=== PATIENT | female | born 1965 | race American Indian/Alaskan Native ===

== ENCOUNTER 2016-11-23 18:32 | Emergency (ER) | payer SELFPAY ==
--- NOTE | 2016-11-23 22:12 | XRay Report ---
FINAL REPORT EXAM: XR ANKLE 3 RT HISTORY: ANKLE PAIN /SWELLING S/P FALL COMPARISONS: None. FINDINGS: Three nonweightbearing views right ankle Ankle mortise appears intact. Chronic appearing osseous fragment at the distal aspect of the medial malleolus measures up to 7 millimeters. No acute fracture identified. There is soft tissue swelling about the ankle. Calcaneal heel spur. Mild tibiotalar and midfoot osteoarthrosis. IMPRESSION: Soft tissue swelling about the right ankle without acute fracture identified. Consider additional imaging for worsening/persistent symptoms.
[2016-11-23] MEDS ORDERED: NORCO 5/325 PO ONE (23:32)
[2016-11-23] MEDS ORDERED: TORADOL IM ONE (23:32)
--- NOTE | 2016-11-23 23:46 | XRay Report ---
FINAL REPORT EXAM: XR FOOT 3 RT HISTORY: Pain post fall rt foot pain COMPARISONS: Ankle radiographs of the same date FINDINGS: Soft tissue swelling is present over the forefoot on lateral view. Mild tibiotalar and midfoot osteoarthrosis. Achilles insertional enthesophytes and calcaneal heel spur noted. No bone lesion, periosteal reaction, or fracture. No deformity or gross malalignment. IMPRESSION: Soft tissue swelling predominantly over the dorsal forefoot. No visualized fracture.
--- NOTE | 2016-11-23 23:58 | Emergency Department Report ---
HPI - General Chief Complaint: Extremity Injury, Lower Time Seen by Provider: 11/23/16 23:01 - HPI HPI: 51-year-old female presents today complaining of right ankle and foot pain post fall that occurred 3 days ago. Patient states that she fell on her ankle. Denies loss of consciousness. Describes her pain as 10 out of 10 constant, throbbing pain. Tried Aleve with some relief. Denies numbness, weakness, paresthesias. Denies fever, chills, nausea, vomiting, chest pain, shortness of breath, abdominal pain. ED Past Medical Hx - Past Medical History Previous Medical History?: Yes Hx CVA: Yes (2010) Hx of Cancer: Yes (BREAST) Additional medical history: REFLUX/ INCREASE CHOLESTROL - Surgical History Additional Surgical History: BACK SURGERY RECONSTRUCTION BREAST SURGERY. PARTIAL HYSTO MASTECTOMY - Social History Smoking Status: Never Smoker Substance Use Type: None - Medications Home Medications: Home Medications Medication Instructions Recorded Confirmed Last Taken Type Naproxen [Naprosyn] 500 mg PO BID #30 tablet 11/23/16 Unknown Rx ED Review of Systems ROS: Stated complaint: FALL/ RT ANKLE PAIN Other details as noted in HPI Constitutional: denies: chills, fever, malaise Eyes: denies: eye pain ENT: denies: ear pain, throat pain, congestion Respiratory: denies: cough, shortness of breath, wheezing Cardiovascular: denies: chest pain, palpitations Endocrine: no symptoms reported Gastrointestinal: denies: abdominal pain, nausea, vomiting Musculoskeletal: joint swelling, arthralgia Neurological: denies: headache, weakness, numbness, paresthesias Physical Exam - Physical Exam Vital Signs: Vital Signs 11/23/16 18:58 Temperature 97.5 F L Pulse Rate 75 Respiratory 18 Rate Blood Pressure 148/73 O2 Sat by Pulse 95 Oximetry Physical Exam: GENERAL: The patient is well-developed and well-nourished. Patient is in NAD. HEAD: Normocephalic. Atraumatic. CHEST/LUNGS: Clear to auscultation throughout. HEART/CARDIOVASCULAR: Regular rate and rhythm. No murmurs, rubs or gallops. ABDOMEN: Abdomen is soft, nontender. Bowel sounds normoactive. No guarding or rebound tenderness. RIGHT FOOT/ANKLE: Tenderness to palpation over the dorsal aspect of right mid foot and the medial aspect of right ankle. Full range of motion but painful. Normal sensation. Peripheral pulses intact. Capillary refill less than 2 seconds. NEURO: Alert and oriented x 3. Antalgic gait. ED Course Vital Signs 11/23/16 18:58 Temperature 97.5 F L Pulse Rate 75 Respiratory 18 Rate Blood Pressure 148/73 O2 Sat by Pulse 95 Oximetry ED Medical Decision Making - Lab Data Vital Signs 11/23/16 18:58 Temperature 97.5 F L Pulse Rate 75 Respiratory 18 Rate Blood Pressure 148/73 O2 Sat by Pulse 95 Oximetry - Radiology Data Radiology results: report reviewed EXAM: XR ANKLE 3 RT HISTORY: ANKLE PAIN /SWELLING S/P FALL COMPARISONS: None. FINDINGS: Three nonweightbearing views right ankle Ankle mortise appears intact. Chronic appearing osseous fragment at the distal aspect of the medial malleolus measures up to 7 millimeters. No acute fracture identified. There is soft tissue swelling about the ankle. Calcaneal heel spur. Mild tibiotalar and midfoot osteoarthrosis. IMPRESSION: Soft tissue swelling about the right ankle without acute fracture identified. Consider additional imaging for worsening/persistent symptoms. EXAM: XR FOOT 3 RT HISTORY: Pain post fall rt foot pain COMPARISONS: Ankle radiographs of the same date FINDINGS: Soft tissue swelling is present over the forefoot on lateral view. Mild tibiotalar and midfoot osteoarthrosis. Achilles insertional enthesophytes and calcaneal heel spur noted. No bone lesion, periosteal reaction, or fracture. No deformity or gross malalignment. IMPRESSION: Soft tissue swelling predominantly over the dorsal forefoot. No visualized fracture. - Medical Decision Making 51-year-old female presents today with right foot and ankle pain post fall. Her x-ray results reveal soft tissue swelling over the dorsal foot and right ankle but no fracture or dislocation. She has been provided with a referral for orthopedic. Patient is in no acute distress at this time. She will be discharged home and is encouraged to follow up with a primary care provider. She will be sent home on naproxen and is encouraged to return to the emergency room for any worsening symptoms. Critical care attestation.: If time is entered above; I have spent that time in minutes in the direct care of this critically ill patient, excluding procedure time. ED Disposition Clinical Impression: Foot pain Qualifiers: Laterality: right Qualified Code(s): M79.671 - Pain in right foot Ankle pain Qualifiers: Laterality: right Chronicity: acute Qualified Code(s): M25.571 - Pain in right ankle and joints of right foot Disposition: DISCHARGED TO HOME OR SELFCARE Is pt being admited?: No Does the pt Need Aspirin: No Condition: Stable Instructions: Foot Sprain (ED), Ankle Exercises (GEN), Ankle Sprain (ED) Additional Instructions: Follow-up with primary care provider. Return to the emergency department if symptoms worsen. Prescriptions: Naproxen [Naprosyn] 500 mg PO BID #30 tablet Referrals: PRIMARY CAREMD [Primary Care Provider] - 3-5 Days LOLITA WEINSTEIN MD [Staff Physician] - 3-5 Days Forms: Work/School Release Form(ED), Accompanied Note Time of Disposition: 23:54
[2016-11-24 03:30] VITALS: BP 155/70
== END 2016-11-24 00:30 | disposition home or self-care (01) ==
LOC: ED 18:32
DX: M25.571 Pain in right ankle and joints of right foot (principal); W18.30XA Fall on same level, unspecified, initial encounter; Y93.9 Activity, unspecified; Y92.9 Unspecified place or not applicable; Y99.9 Unspecified external cause status
CPT/HCPCS: 73610; 73630; 96372; 99283; J1885